=== PATIENT | male | born 1970 | race African-American/Black ===

== ENCOUNTER 2020-12-31 02:19 | Emergency (ER) | payer SELFPAY ==
[~2020-12-31] VITALS: Ht 182.9 cm; Wt 89.5 kg
--- NOTE | 2020-12-31 03:55 | RAD ---
Single view chest dated 12/31/2020. No comparison available. CLINICAL INDICATION: Shortness of breath. FINDINGS: Single upright portable exam performed. Heart and mediastinal contours within normal limits. Lungs ar e clear. No consolidation or pleural effusion. No pneumothorax. IMPRESSION: No acute radiographic abnormality. Electronically signed by: Soren Alonso MD (12/31/2020 3:53 AM) [facility]
[2020-12-31] MEDS ORDERED: BENZ100C PO (04:41)
--- NOTE | 2020-12-31 04:42 | ED.ADGEN ---
Past Medical History Past Medical History: Hypertension Past Surgical History: No Surgical History Smoking Status: Current Every Day Smoker Alcohol Use: Heavy General Adult EDM: Chief Complaint: SHORTNESS OF BREATH HPI: HPI: Patient is a 50-year-old male who presents to the emergency room complaining of 3 days of cough. Patient states that 3 days ago he started having coughing fits at night where he could not catch his breath. He had a little bit of a runny nose but denies any other associated symptoms. He states that he got better the day after but then last night he started having the coughing fits again where he could not catch his breath. He denies any chest pain, abdominal pain, nausea, vomiting, fever, chills, sweats, shortness of breath, sore throat, headache. He has had one of his Covid vaccines. He is due for the other one on Saturday. No one else around him has been ill. Review of Systems: Review of Systems: Complete ROS is negative unless otherwise documented in HPI Allergies: Allergies: Allergies Coded Allergies Type Severity Reaction Last Updated Verified No Known Drug Allergies 12/31/20 No Physical Exam: PE: General: Awake, alert, NAD. Well Nourished, well hydrated. Cooperative HEENT: Atraumatic, EOMI, PERRL, airway patent, moist oral mucosa Neck: Supple, trachea midline Respiratory: CTA bilaterally, normal effort, no wheezing/crackles CV: RRR, no murmur, cap refill <2 GI: Soft, nondistended, nontender, no masses MSK: No obvious deformities Skin: Warm, dry, intact Neuro: A&O x3, speech NL, sensory and motor grossly intact, no focal deficits Psych: Normal affect, normal mood, not suicidal or homicidal Current Patient Data: Vital Signs: Vital Signs Date Time Temp Pulse Resp B/P (MAP) Pulse Ox O2 Delivery O2 Flow Rate FiO2 12/31/20 03:05 98.0 100 20 168/104 (125) 98 Room Air 98.0 EKG: EKG: [] Heart Score: C/O Chest Pain: N/A Risk Factors: Risk Factors: DM, Current or recent (<one month) smoker, HTN, HLP, family history of CAD, obesity. Risk Scores: Score 0 - 3: 2.5% MACE over next 6 weeks - Discharge Home Score 4 - 6: 20.3% MACE over next 6 weeks - Admit for Clinical Observation Score 7 - 10: 72.7% MACE over next 6 weeks - Early Invasive Strategies Radiology/Procedures: Radiology/Procedures: [] Course & Med Decision Making: Course & Med Decision Making Pertinent Labs and Imaging studies reviewed. (See chart for details) Patient is a 50-year-old male presents to the emergency room complaining of 3 days of coughing fits. Patient did have an episode while he was in the room. Patient is overall well-appearing. He is not having any other symptoms. Chest x-ray was done and does not show signs of acute infection. Covid swab will be done. Patient will be given cough medicine and will follow up with his primary care doctor. We discussed quarantine. Patient's test results and vitals while in the ED were fully reviewed and discussed with the patient. Patient is stable and at this time does not need admission to the hospital. We have discussed strict return precautions and the importance of following up with their Primary Care Physician. Patient stated understanding and was given an opportunity to ask any questions. Patient is in agreement with plan. Risa Disclaimer: Risa Disclaimer: This electronic medical record was generated, in whole or in part, using a voice recognition dictation system. Departure Departure Impression: Primary Impression: Cough Disposition: HOME / SELF CARE / HOMELESS Condition: STABLE Referrals: NO PCP (PCP) Patient Instructions: Cough, Adult Scripts Benzonatate (TESSALON PERLE) 100 Mg Capsule 1 CAP PO TID for cough, #21 CAP Prov: BRENDON CORDERO MD 12/31/20 BRENDON CORDERO MD December 31, 2020 04:42
[2020-12-31 05:36] VITALS: BP 144/81
--- NOTE | 2021-01-02 08:30 | NUR ---
IP: Attempted to contact pt concerning COVID results. No answer, left a voicemail to return the call.
--- NOTE | 2021-01-02 08:42 | NUR ---
IP: Pt return my call and I informed him of the negative COVID test. Pt verbalized understanding.
== END 2020-12-31 05:50 | disposition home or self-care (01) ==
LOC: ER 02:19
DX: R05 Cough (principal); Z20.822 Contact with and (suspected) exposure to COVID-19; R09.89 Other specified symptoms and signs involving the circulatory and respiratory systems; I10 Essential (primary) hypertension; F17.200 Nicotine dependence, unspecified, uncomplicated; F10.20 Alcohol dependence, uncomplicated; Y90.9 Presence of alcohol in blood, level not specified
CPT/HCPCS: 71045; 99285; U0003; U0005